=== PATIENT | male | born 1990 | race Caucasian/White ===

== ENCOUNTER 2016-08-20 14:49 | Emergency (ER) | payer OTHER ==
[~2016-08-20] VITALS: Ht 177.8 cm; Wt 79.4 kg
[2016-08-20 14:49] VITALS: BP 128/84
== END 2016-08-20 17:15 ==
LOC: ER 14:53 → EDBD 14:53 → ER 17:15
DX: F11.10 Opioid abuse, uncomplicated (principal)
CPT/HCPCS: 99283; A4606; Z7610